=== PATIENT | male | born 1950 | race Caucasian/White ===

== ENCOUNTER 2023-09-20 20:23 | Emergency (ER) | payer MEDICARE, MEDICAID ==
[~2023-09-20] VITALS: Ht 175.3 cm; Wt 78.0 kg
[~2023-09-20 20:23] MED LIST: ALLO100T MT; GABA-532 MT; TRAM50TA94 MT
[2023-09-20 20:32] VITALS: O2SAT 97
[2023-09-20] MEDS: ACETAMINOPHEN 325MG TABLET PO ONE (20:59)
[2023-09-20] MEDS ORDERED: ACET-2708 MT (21:26)
[2023-09-20 21:31] VITALS: BP 141/78; PULSE 100; RESP 16; TEMP 98.7
== END 2023-09-20 21:30 | disposition home or self-care (01) ==
LOC: ER 20:47
DX: M79.604 Pain in right leg (principal); M79.605 Pain in left leg
CPT/HCPCS: 99282